=== PATIENT | female | born 1995 ===

== ENCOUNTER 2023-08-04 10:02 | Emergency (ER) | payer SELFPAY ==
[~2023-08-04] VITALS: Ht 162.6 cm; Wt 63.5 kg
--- NOTE | 2023-08-04 10:14 | ED GU-Female ---
General Stated Complaint: 8 WEEKS PREG | VAGINAL BLEEDING History of Present Illness Date Seen by Provider: Aug 04, 2023 Time Seen by Provider: 10:13 Initial Comments 28-year-old female presents with vaginal bleeding. Patient is known positive . She think she is approximately 8 weeks . Her last menstrual period started on June 07 Allergies and Home Medications Patient Home Medication List Home Medication List Reviewed: Yes Review of Systems Review of Systems Constitutional: see HPI Respiratory: no symptoms reported Cardiovascular: no symptoms reported Gastrointestinal: no symptoms reported : Yes Skin: no symptoms reported Psychiatric/Neurological: No Symptoms Reported Physical Exam Vital Signs Vital Signs - First Documented 08/04/23 10:10 Temp 36.5 Pulse 70 Resp 19 B/P (MAP) 129/83 (98) O2 Delivery Room Air Capillary Refill : Height, Weight, BMI Height: '" Weight: lbs. oz. kg; BMI Method: General Appearance: WD/WN, no apparent distress Cardiovascular: normal peripheral pulses, regular rate, rhythm Extremities: normal range of motion, non-tender Neurologic/Psychiatric: alert, normal mood/affect, oriented x 3 Skin: normal color, warm/dry Progress/Results/Core Measures Suspected Sepsis SIRS Temperature: Pulse: Respiratory Rate: Laboratory Tests 08/04/23 11:16: White Blood Count 9.5 Blood Pressure / Mean: Laboratory Tests 08/04/23 11:16: Platelet Count 345 Results/Orders Lab Results Laboratory Tests Test 08/04/23 11:16 Range/Units White Blood Count 9.5 4.3-11.0 10^3/uL Red Blood Count 4.37 3.80-5.11 10^6/uL Hemoglobin 14.6 11.5-16.0 g/dL Hematocrit 42 35-52 % Mean Corpuscular Volume 96 80-99 fL Mean Corpuscular Hemoglobin 33 25-34 pg Mean Corpuscular Hemoglobin Concent 35 32-36 g/dL Red Cell Distribution Width 11.2 10.0-14.5 % Platelet Count 345 130-400 10^3/uL Mean Platelet Volume 10.0 9.0-12.2 fL Human Chorionic Gonadotropin, Quant 2819 H <5 MIU/ML My Orders Orders - MEJIAS,ARACELIS L DO Cbc No Diff (08/04/23 10:14) Hcg,Quantitative (08/04/23 10:14) Us Ob<14 Wks Sngle W/Transvag (08/04/23 10:14) Vital Signs/I&O 08/04/23 10:10 Temp 36.5 Pulse 70 Resp 19 B/P (MAP) 129/83 (98) O2 Delivery Room Air Capillary Refill : Progress Note : Progress Note Patient's diagnostic studies were ordered reviewed by me. Patient has a stable hemoglobin. Her hCG is a little over thousand making her very early in her . Patient's ultrasound shows gestational sac but no pole which may be due to early . Her hemorrhaging may be due to possible demise or just early bleeding in . I had a long discussion with patient that is too early for us to tell anything off her hCG and ultrasound. I did discuss findings with both of them with her. I recommend she take Tylenol for the discomfort and cramping. 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 Patient was stable and discharged home. Diagnostic Imaging Diagonstic Imaging: Ultrasound Comments Date of Exam:08/04/23 US OB<14 WKS SNGLE W/TRANSVAG INDICATION: Vaginal bleeding. Patient is 8 weeks . Uterus measures 8.8 x 4.4 x 4.1 cm. There is an intrauterine gestational sac present measuring 5 weeks 5 days. No pole or yolk sac is identified at this time. No briseyda-gestational sac hemorrhage is detected. No myometrial mass identified. Right ovary was not visualized due to overlying bowel gas. Left ovary measures 2.3 x 1.9 x 1.6 cm. There is no adnexal mass or free fluid detected. IMPRESSION: Intrauterine gestational sac measuring approximately 5 weeks 5 days. However, no pole or yolk sac is seen at this time. This could be owing to very early gestation versus blighted ovum. Followup ultrasound and/or correlation with serial beta hCG levels could be performed to evaluate viability. Reviewed: Reviewed/Discussed Departure Impression Primary Impression: Bleeding in early Disposition: 01 HOME, SELF-CARE Condition: Stable Departure-Patient Inst. Referrals: NO,LOCAL PHYSICIAN (PCP/Family) Primary Care Physician Patient Instructions: Bleeding in Early ED Add. Discharge Instructions: Please follow-up with your electronics engineering professor for repeat evaluation. Please keep your already scheduled appointment ARACELIS MEJIAS DO Aug 04, 2023 10:13
[2023-08-04 11:23] LABS: HEMATOCRIT 42 % (35-52); HEMOGLOBIN 14.6 g/dL (11.5-16.0); MEAN CORPUSCULAR HEMOGLOBIN 33 pg (25-34); MEAN CORPUSCULAR HGB CONC 35 g/dL (32-36); MEAN CORPUSCULAR VOLUME 96 fL (80-99); PLATELET COUNT 345 10^3/uL (130-400); WHITE BLOOD COUNT 9.5 10^3/uL (4.3-11.0)
--- NOTE | 2023-08-04 12:28 | Diagnostic Imaging Report ---
INDICATION: Vaginal bleeding. Patient is 8 weeks . Uterus measures 8.8 x 4.4 x 4.1 cm. There is an intrauterine gestational sac present measuring 5 weeks 5 days. No pole or yolk sac is identified at this time. No briseyda-gestational sac hemorrhage is detected. No myometrial mass identified. Right ovary was not visualized due to overlying bowel gas. Left ovary measures 2.3 x 1.9 x 1.6 cm. There is no adnexal mass or free fluid detected. IMPRESSION: Intrauterine gestational sac measuring approximately 5 weeks 5 days. However, no pole or yolk sac is seen at this time. This could be owing to very early gestation versus blighted ovum. Followup ultrasound and/or correlation with serial beta hCG levels could be performed to evaluate viability. Dictated by: Dictated on workstation # [id number]
[2023-08-04 12:57] VITALS: BP 132/81
== END 2023-08-04 12:57 | disposition home or self-care (01) ==
LOC: ER 10:06
DX: O20.9 Hemorrhage in early pregnancy, unspecified (principal); Z28.310 Unvaccinated for COVID-19; Z3A.08 8 weeks gestation of pregnancy
CPT/HCPCS: 36415; 76801; 76817; 84702; 85027; 99282